=== PATIENT | female | born 1990 | race Caucasian/White ===

== ENCOUNTER 2021-07-27 13:28 | Inpatient (IN) | payer OTHER ==
[~2021-07-27] VITALS: Ht 165.1 cm; Wt 61.2 kg
[2021-07-27 16:00] VITALS: BP 103/58
[2021-07-27] MEDS ORDERED: ACETAMINOPHEN 325 MG TABLET PO PRN ×2 (16:15→17:15)
[2021-07-27] MEDS ORDERED: BISACODYL 5 MG EC TABLET PO PRN (17:00)
[2021-07-27 17:22] LABS: ALANINE AMINOTRANSFERASE 53 U/L (12-78); ALBUMIN 2.9 g/dL (3.4-5.0); ALKALINE PHOSPHATASE 81 U/L (46-116); ANION GAP 9 mmol/L (8-16); ASPARTATE AMINOTRANSFERASE 25 U/L (15-37); BILIRUBIN,TOTAL 0.4 mg/dL (0.1-1.0); CALCIUM, TOTAL 7.9 mg/dL (8.8-10.5); CARBON DIOXIDE 28 mmol/L (22-29); CHLORIDE 101 mmol/L (98-107); CREATININE 0.65 mg/dL (0.60-1.30); GLOMERULAR FILTR. RATE CALC > 60 mL/min (>60); GLUCOSE,RANDOM 101 mg/dL (70-110); POTASSIUM 3.4 mmol/L (3.5-5.1); SODIUM SERUM 138 mmol/L (136-145); TOTAL PROTEIN, SERUM 6.9 g/dL (6.4-8.2); UREA NITROGEN, BLOOD 13 mg/dL (7-18)
[2021-07-27] MEDS: ACETAMINOPHEN 325 MG TABLET PO SCH ×2 (18:40→23:53)
[2021-07-27] MEDS: DOCUSATE SODIUM 100 MG CAPSULE PO SCH (20:06)
[2021-07-27] MEDS: ETHYL ALCOHOL 62% ANTISEPTIC NASAL SANITIZER 0.6 ML AMPUL NASAL SCH (20:06)
[2021-07-27] MEDS: SENNA 187 MG TABLET PO SCH (20:07)
[2021-07-27] MEDS: GABAPENTIN 400 MG CAPSULE PO SCH (20:07)
[2021-07-27] MEDS: ATORVASTATIN CALCIUM 40 MG TABLET PO SCH (20:08)
[2021-07-27] MEDS: ENOXAPARIN SODIUM 30 MG/0.3 ML PF SYRINGE SQ SCH (20:09)
[2021-07-27 23:55] VITALS: BP 102/64
[2021-07-27] MEDS: OxyCODONE HCL 5 MG IR TABLET PO PRN (23:55)
[2021-07-28] VITALS: BP 102/64
[2021-07-28] MEDS: ACETAMINOPHEN 325 MG TABLET PO SCH ×3 (06:07→19:07)
[2021-07-28 06:42] LABS: BASOPHILS % (AUTO) 1.2 % (0.0-2.0); EOSINOPHILS % (AUTO) 2.5 % (1.0-6.0); HEMOGLOBIN 9.6 g/dL (12.0-16.0); LYMPHOCYTES # (AUTO) 2.2 K/uL (1.0-4.8); LYMPHOCYTES % (AUTO) 31.7 % (22.0-44.0); MEAN CORPUSCULAR HEMOGLOBIN 32.6 pg (26.0-34.0); MEAN CORPUSCULAR HGB CONC 34.3 G/dL (31.0-37.0); MEAN CORPUSCULAR VOLUME 95 fL (80-100); MONOCYTES # (AUTO) 0.3 K/uL (0.1-1.0); MONOCYTES % (AUTO) 4.7 % (2.0-9.0); NEUTROPHILS # (AUTO) 4.3 K/uL (1.8-7.7); NEUTROPHILS % (AUTO) 59.9 % (40.0-70.0); PLATELET COUNT (AUTO) 638 K/uL (150-450); RED BLOOD CELL COUNT(AUTO) 2.95 MIL/uL (4.00-5.20); RED CELL DISTRIBUTION WIDTH 13.7 % (11.5-14.5)
[2021-07-28 07:03] LABS: ALANINE AMINOTRANSFERASE 52 U/L (12-78); ALKALINE PHOSPHATASE 81 U/L (46-116); ANION GAP 6 mmol/L (8-16); ASPARTATE AMINOTRANSFERASE 26 U/L (15-37); BILIRUBIN,TOTAL 0.5 mg/dL (0.1-1.0); CALCIUM, TOTAL 8.6 mg/dL (8.8-10.5); CARBON DIOXIDE 30 mmol/L (22-29); CHLORIDE 103 mmol/L (98-107); CREATININE 0.58 mg/dL (0.60-1.30); GLOMERULAR FILTR. RATE CALC > 60 mL/min (>60); GLUCOSE,RANDOM 97 mg/dL (70-110); POTASSIUM 3.7 mmol/L (3.5-5.1); SODIUM SERUM 139 mmol/L (136-145); TOTAL PROTEIN, SERUM 7.1 g/dL (6.4-8.2); UREA NITROGEN, BLOOD 9 mg/dL (7-18)
[2021-07-28] MEDS: OxyCODONE HCL 5 MG IR TABLET PO PRN ×2 (08:23→13:39)
[2021-07-28 08:24] VITALS: BP 99/58
[2021-07-28] MEDS: ETHYL ALCOHOL 62% ANTISEPTIC NASAL SANITIZER 0.6 ML AMPUL NASAL SCH ×2 (10:16→20:23)
[2021-07-28] MEDS: GABAPENTIN 400 MG CAPSULE PO SCH (10:16)
[2021-07-28] MEDS: DOCUSATE SODIUM 100 MG CAPSULE PO SCH ×2 (10:16→20:25)
[2021-07-28] MEDS: ASPIRIN 325 MG TABLET PO SCH (10:16)
[2021-07-28] MEDS: THIAMINE 100 MG TABLET PO SCH (10:17)
[2021-07-28] MEDS: ENOXAPARIN SODIUM 30 MG/0.3 ML PF SYRINGE SQ SCH ×2 (10:24→20:23)
[2021-07-28] MEDS: SIMETHICONE 80 MG CHEWABLE TABLET CHEW PRN (16:40)
[2021-07-28] MEDS: GABAPENTIN 300 MG CAPSULE PO SCH ×2 (16:40→20:24)
[2021-07-28 16:49] VITALS: BP 102/48
[2021-07-28] MEDS: ATORVASTATIN CALCIUM 40 MG TABLET PO SCH (20:23)
[2021-07-28] MEDS: SENNA 187 MG TABLET PO SCH (20:24)
[2021-07-28] MEDS: FAMOTIDINE 20 MG TABLET PO SCH (20:24)
[2021-07-29] MEDS: ACETAMINOPHEN 325 MG TABLET PO SCH ×4 (00:59→20:20)
[2021-07-29 01:14] VITALS: BP 98/61
[2021-07-29] MEDS: ETHYL ALCOHOL 62% ANTISEPTIC NASAL SANITIZER 0.6 ML AMPUL NASAL SCH ×2 (08:07→20:22)
[2021-07-29] MEDS: ENOXAPARIN SODIUM 30 MG/0.3 ML PF SYRINGE SQ SCH ×2 (08:07→20:23)
[2021-07-29] MEDS: FAMOTIDINE 20 MG TABLET PO SCH ×2 (08:08→20:22)
[2021-07-29] MEDS: THIAMINE 100 MG TABLET PO SCH (08:08)
[2021-07-29] MEDS: GABAPENTIN 300 MG CAPSULE PO SCH ×3 (08:08→20:22)
[2021-07-29] MEDS: ASPIRIN 325 MG TABLET PO SCH (08:08)
[2021-07-29] MEDS: DOCUSATE SODIUM 100 MG CAPSULE PO SCH (08:09)
[2021-07-29 10:24] VITALS: BP 101/69
[2021-07-29] MEDS: SIMETHICONE 80 MG CHEWABLE TABLET CHEW PRN (12:38)
[2021-07-29] MEDS ORDERED: DOCUSATE SODIUM 100 MG CAPSULE PO PRN (15:00)
[2021-07-29] MEDS ORDERED: SENNA 187 MG TABLET PO PRN (15:00)
[2021-07-29 17:03] VITALS: BP 96/64
[2021-07-29] MEDS: ATORVASTATIN CALCIUM 40 MG TABLET PO SCH (20:22)
[2021-07-30] VITALS: BP 91/55
[2021-07-30] MEDS: ACETAMINOPHEN 325 MG TABLET PO SCH ×4 (01:13→20:25)
[2021-07-30] MEDS: GABAPENTIN 300 MG CAPSULE PO SCH ×3 (08:36→20:34)
[2021-07-30] MEDS: ETHYL ALCOHOL 62% ANTISEPTIC NASAL SANITIZER 0.6 ML AMPUL NASAL SCH ×2 (08:36→20:32)
[2021-07-30] MEDS: FAMOTIDINE 20 MG TABLET PO SCH ×2 (08:36→20:33)
[2021-07-30] MEDS: ASPIRIN 325 MG TABLET PO SCH (08:36)
[2021-07-30 08:37] VITALS: BP 126/58
[2021-07-30] MEDS: OxyCODONE HCL 5 MG IR TABLET PO PRN (08:37)
[2021-07-30] MEDS: ENOXAPARIN SODIUM 30 MG/0.3 ML PF SYRINGE SQ SCH ×2 (08:41→20:36)
[2021-07-30] MEDS: THIAMINE 100 MG TABLET PO SCH (08:41)
[2021-07-30 16:09] VITALS: BP 124/64
[2021-07-30] MEDS: ATORVASTATIN CALCIUM 40 MG TABLET PO SCH (20:35)
[2021-07-31 00:15] VITALS: BP 95/75
[2021-07-31] MEDS: ACETAMINOPHEN 325 MG TABLET PO SCH ×5 (01:38→20:52)
[2021-07-31] MEDS: ETHYL ALCOHOL 62% ANTISEPTIC NASAL SANITIZER 0.6 ML AMPUL NASAL SCH ×2 (07:31→20:18)
[2021-07-31] MEDS: ASPIRIN 325 MG TABLET PO SCH (07:31)
[2021-07-31] MEDS: ENOXAPARIN SODIUM 30 MG/0.3 ML PF SYRINGE SQ SCH ×2 (07:32→20:19)
[2021-07-31] MEDS: THIAMINE 100 MG TABLET PO SCH (07:32)
[2021-07-31] MEDS: GABAPENTIN 300 MG CAPSULE PO SCH ×3 (07:32→20:19)
[2021-07-31] MEDS: FAMOTIDINE 20 MG TABLET PO SCH ×2 (07:32→20:19)
[2021-07-31 08:00] VITALS: BP 91/55
[2021-07-31 12:00] VITALS: BP 118/59
[2021-07-31 16:35] VITALS: BP 108/62
[2021-07-31] MEDS: ATORVASTATIN CALCIUM 40 MG TABLET PO SCH (20:19)
[2021-08-01] MEDS: ACETAMINOPHEN 325 MG TABLET PO SCH ×4 (01:48→17:36)
[2021-08-01 02:21] VITALS: BP 92/57
[2021-08-01] MEDS: ENOXAPARIN SODIUM 30 MG/0.3 ML PF SYRINGE SQ SCH ×2 (08:02→19:57)
[2021-08-01] MEDS: THIAMINE 100 MG TABLET PO SCH (08:03)
[2021-08-01] MEDS: FAMOTIDINE 20 MG TABLET PO SCH ×2 (08:03→19:57)
[2021-08-01] MEDS: GABAPENTIN 300 MG CAPSULE PO SCH ×3 (08:03→19:57)
[2021-08-01] MEDS: ASPIRIN 325 MG TABLET PO SCH (08:03)
[2021-08-01] MEDS: ETHYL ALCOHOL 62% ANTISEPTIC NASAL SANITIZER 0.6 ML AMPUL NASAL SCH ×2 (08:06→19:57)
[2021-08-01 09:07] VITALS: BP 91/47
[2021-08-01 16:35] VITALS: BP 120/74
[2021-08-01] MEDS: ATORVASTATIN CALCIUM 40 MG TABLET PO SCH (19:57)
[2021-08-02] VITALS: BP 104/58
[2021-08-02] MEDS: ACETAMINOPHEN 325 MG TABLET PO SCH ×4 (00:05→18:07)
[2021-08-02] MEDS: ETHYL ALCOHOL 62% ANTISEPTIC NASAL SANITIZER 0.6 ML AMPUL NASAL SCH ×2 (08:16→20:31)
[2021-08-02] MEDS: THIAMINE 100 MG TABLET PO SCH (08:17)
[2021-08-02] MEDS: ASPIRIN 325 MG TABLET PO SCH (08:17)
[2021-08-02] MEDS: GABAPENTIN 300 MG CAPSULE PO SCH ×3 (08:17→20:32)
[2021-08-02] MEDS: FAMOTIDINE 20 MG TABLET PO SCH ×2 (08:18→20:32)
[2021-08-02] MEDS: ENOXAPARIN SODIUM 30 MG/0.3 ML PF SYRINGE SQ SCH ×2 (08:18→20:31)
[2021-08-02 09:40] VITALS: BP 95/59
[2021-08-02 16:00] VITALS: BP 96/60
[2021-08-02] MEDS: ATORVASTATIN CALCIUM 40 MG TABLET PO SCH (20:32)
[2021-08-03] VITALS: BP 91/49
[2021-08-03] MEDS: ACETAMINOPHEN 325 MG TABLET PO SCH ×5 (00:08→23:35)
[2021-08-03 09:01] VITALS: BP 96/60
[2021-08-03] MEDS: GABAPENTIN 300 MG CAPSULE PO SCH ×3 (09:12→20:26)
[2021-08-03] MEDS: ETHYL ALCOHOL 62% ANTISEPTIC NASAL SANITIZER 0.6 ML AMPUL NASAL SCH ×2 (09:12→20:26)
[2021-08-03] MEDS: ASPIRIN 325 MG TABLET PO SCH (09:12)
[2021-08-03] MEDS: THIAMINE 100 MG TABLET PO SCH (09:13)
[2021-08-03] MEDS: ENOXAPARIN SODIUM 30 MG/0.3 ML PF SYRINGE SQ SCH ×2 (09:13→20:26)
[2021-08-03] MEDS: FAMOTIDINE 20 MG TABLET PO SCH ×2 (09:13→20:26)
[2021-08-03 16:30] VITALS: BP 101/64
[2021-08-03] MEDS: ATORVASTATIN CALCIUM 40 MG TABLET PO SCH (20:26)
[2021-08-04 01:30] VITALS: BP 95/63
[2021-08-04] MEDS: ACETAMINOPHEN 325 MG TABLET PO SCH ×4 (06:10→23:50)
[2021-08-04 06:45] LABS: ANION GAP 7 mmol/L (8-16); CALCIUM, TOTAL 8.4 mg/dL (8.8-10.5); CARBON DIOXIDE 29 mmol/L (22-29); CHLORIDE 104 mmol/L (98-107); CREATININE 0.62 mg/dL (0.60-1.30); GLOMERULAR FILTR. RATE CALC > 60 mL/min (>60); GLUCOSE,RANDOM 88 mg/dL (70-110); SODIUM SERUM 140 mmol/L (136-145); UREA NITROGEN, BLOOD 7 mg/dL (7-18)
[2021-08-04 06:59] LABS: BASOPHILS % (AUTO) 0.7 % (0.0-2.0); HEMATOCRIT 30.3 % (36-46); HEMOGLOBIN 10.4 g/dL (12.0-16.0); LYMPHOCYTES # (AUTO) 1.9 K/uL (1.0-4.8); LYMPHOCYTES % (AUTO) 27.4 % (22.0-44.0); MEAN CORPUSCULAR HEMOGLOBIN 32.4 pg (26.0-34.0); MEAN CORPUSCULAR HGB CONC 34.4 G/dL (31.0-37.0); MEAN CORPUSCULAR VOLUME 94 fL (80-100); MONOCYTES # (AUTO) 0.5 K/uL (0.1-1.0); NEUTROPHILS # (AUTO) 4.2 K/uL (1.8-7.7); NEUTROPHILS % (AUTO) 60.9 % (40.0-70.0); PLATELET COUNT (AUTO) 410 K/uL (150-450); RED BLOOD CELL COUNT(AUTO) 3.22 MIL/uL (4.00-5.20); RED CELL DISTRIBUTION WIDTH 13.9 % (11.5-14.5)
[2021-08-04] MEDS: ENOXAPARIN SODIUM 30 MG/0.3 ML PF SYRINGE SQ SCH ×2 (08:26→21:23)
[2021-08-04] MEDS: THIAMINE 100 MG TABLET PO SCH (08:26)
[2021-08-04] MEDS: ASPIRIN 325 MG TABLET PO SCH (08:26)
[2021-08-04] MEDS: GABAPENTIN 300 MG CAPSULE PO SCH ×3 (08:26→21:23)
[2021-08-04] MEDS: FAMOTIDINE 20 MG TABLET PO SCH ×2 (08:27→21:23)
[2021-08-04] MEDS: ETHYL ALCOHOL 62% ANTISEPTIC NASAL SANITIZER 0.6 ML AMPUL NASAL SCH ×2 (08:37→21:23)
[2021-08-04 09:01] VITALS: BP 105/57
[2021-08-04 16:00] VITALS: BP 97/59
[2021-08-04 21:00] VITALS: BP 97/59
[2021-08-04] MEDS: ATORVASTATIN CALCIUM 40 MG TABLET PO SCH (21:23)
[2021-08-04] MEDS ORDERED: ASPI-989 PO (23:45)
[2021-08-04] MEDS ORDERED: GABA-1181 PO (23:45)
[2021-08-04] MEDS ORDERED: THIA100T80 PO (23:45)
[2021-08-04] MEDS ORDERED: ACET-2247 PO (23:45)
[2021-08-04] MEDS ORDERED: FAMO20 PO (23:45)
[2021-08-04] MEDS ORDERED: ATOR40TA28 PO (23:45)
[2021-08-05] VITALS: BP 90/53
[2021-08-05] MEDS: ACETAMINOPHEN 325 MG TABLET PO SCH ×4 (06:05→23:42)
[2021-08-05] MEDS: ETHYL ALCOHOL 62% ANTISEPTIC NASAL SANITIZER 0.6 ML AMPUL NASAL SCH ×2 (08:48→20:14)
[2021-08-05] MEDS: GABAPENTIN 300 MG CAPSULE PO SCH ×3 (08:49→20:14)
[2021-08-05] MEDS: ASPIRIN 325 MG TABLET PO SCH (08:49)
[2021-08-05] MEDS: THIAMINE 100 MG TABLET PO SCH (08:50)
[2021-08-05] MEDS: ENOXAPARIN SODIUM 30 MG/0.3 ML PF SYRINGE SQ SCH ×2 (08:50→20:14)
[2021-08-05] MEDS: FAMOTIDINE 20 MG TABLET PO SCH ×2 (08:51→20:14)
[2021-08-05 09:00] VITALS: BP 92/62
[2021-08-05 16:36] VITALS: BP 99/64
[2021-08-05] MEDS: ATORVASTATIN CALCIUM 40 MG TABLET PO SCH (20:14)
[2021-08-06] VITALS: BP 95/55
[2021-08-06] MEDS: ACETAMINOPHEN 325 MG TABLET PO SCH ×4 (06:16→23:30)
[2021-08-06] MEDS: ETHYL ALCOHOL 62% ANTISEPTIC NASAL SANITIZER 0.6 ML AMPUL NASAL SCH ×2 (07:41→20:38)
[2021-08-06] MEDS: ASPIRIN 325 MG TABLET PO SCH (07:42)
[2021-08-06] MEDS: FAMOTIDINE 20 MG TABLET PO SCH ×2 (07:43→20:38)
[2021-08-06] MEDS: GABAPENTIN 300 MG CAPSULE PO SCH ×3 (07:43→20:38)
[2021-08-06] MEDS: THIAMINE 100 MG TABLET PO SCH (07:43)
[2021-08-06] MEDS: ENOXAPARIN SODIUM 30 MG/0.3 ML PF SYRINGE SQ SCH ×2 (07:44→20:39)
[2021-08-06 09:10] VITALS: BP 94/57
[2021-08-06 16:11] VITALS: BP 99/64
[2021-08-06] MEDS: ATORVASTATIN CALCIUM 40 MG TABLET PO SCH (20:39)
[2021-08-07] VITALS: BP 95/49
[2021-08-07] MEDS: ACETAMINOPHEN 325 MG TABLET PO SCH ×2 (06:07→12:09)
[2021-08-07] MEDS: ETHYL ALCOHOL 62% ANTISEPTIC NASAL SANITIZER 0.6 ML AMPUL NASAL SCH (08:07)
[2021-08-07] MEDS: ENOXAPARIN SODIUM 30 MG/0.3 ML PF SYRINGE SQ SCH (08:08)
[2021-08-07] MEDS: ASPIRIN 325 MG TABLET PO SCH (08:08)
[2021-08-07] MEDS: FAMOTIDINE 20 MG TABLET PO SCH (08:08)
[2021-08-07] MEDS: GABAPENTIN 300 MG CAPSULE PO SCH (08:08)
[2021-08-07] MEDS: THIAMINE 100 MG TABLET PO SCH (08:08)
[2021-08-07] MEDS ORDERED: GABA-1181 PO (09:05)
[2021-08-07] MEDS ORDERED: FAMO20 PO (09:05)
[2021-08-07] MEDS ORDERED: ACET325T51 PO (09:05)
[2021-08-07] MEDS ORDERED: ASPI-1026 PO (09:05)
[2021-08-07] MEDS ORDERED: ATOR40TA71 PO (09:05)
[2021-08-07] MEDS ORDERED: THIA100T80 PO (09:05)
[2021-08-07 09:11] VITALS: BP 99/55
== END 2021-08-07 13:15 | disposition home or self-care (01) | DRG 914 ==
LOC: 2WR 15:30
PROVIDERS: ADMIT Physical Medicine & Rehabilitation; ATTEND Physical Medicine & Rehabilitation
DX: S36.893A Laceration of other intra-abdominal organs, initial encounter (principal); E46 Unspecified protein-calorie malnutrition; S15.19 Other specified injury of vertebral artery; D64.9 Anemia, unspecified; S36.538A Laceration of other part of colon, initial encounter; S36.438A Laceration of other part of small intestine, initial encounter; S82.54XA Nondisplaced fracture of medial malleolus of right tibia, initial encounter for closed fracture; E78.5 Hyperlipidemia, unspecified; K59.00 Constipation, unspecified; K21.9 Gastro-esophageal reflux disease without esophagitis; S82.891A Other fracture of right lower leg, initial encounter for closed fracture; V89.2XXA Person injured in unspecified motor-vehicle accident, traffic, initial encounter; Y93.89 Activity, other specified; Y92.89 Other specified places as the place of occurrence of the external cause; Y99.8 Other external cause status; Z68.22 Body mass index [BMI] 22.0-22.9, adult; Z79.899 Other long term (current) drug therapy
CPT/HCPCS: 80048; 80053; 85025; 87081; 93970; 97110; 97116; 97150; 97163; 97166; 97530; 97535; 99366; J1650